=== PATIENT | female | born 1980 | race Two or more races ===

== ENCOUNTER 2022-03-04 22:13 | Emergency (ER) | payer MEDICAID ==
[~2022-03-04] VITALS: Ht 152.4 cm; Wt 77.3 kg
[2022-03-04 22:34] VITALS: BP 133/77
== END 2022-03-05 01:00 | disposition left against medical advice (07) ==
LOC: EMS 22:13
DX: R07.9 Chest pain, unspecified (principal); Z53.21 Procedure and treatment not carried out due to patient leaving prior to being seen by health care provider
CPT/HCPCS: 93005